=== PATIENT | female | born 1940 | race Caucasian/White ===

== ENCOUNTER 2016-12-30 17:06 | Emergency (ER) | payer MEDICARE, SELFPAY ==
[~2016-12-30 17:06] MED LIST: ASPIRIN EC81 MG PO; ATROVENT2.5 ML NEB; DAILY MULTIPLE1 EAC1 PO; INDERAL20 MG PO; LATANOPROST2.5 ML OP; LEVAQUIN500 MG PO; MYSOLINE50 MG PO; NAPROSYN500 MG PO; PRILOSEC OTC20 MG PO; PROZAC20 MG PO; ZESTRIL20 M1 PO; ZOCOR40 MG PO
[2016-12-30 17:35] LABS: URINE BILIRUBIN NEGATIVE (NEGATIVE); URINE BLOOD NEGATIVE (NEGATIVE); URINE GLUCOSE (UA) NORMAL (NORMAL); URINE KETONE NEGATIVE (NEGATIVE); URINE LEUKOCYTE ESTERASE TRACE (NEGATIVE); URINE NITRATE NEGATIVE (NEGATIVE); URINE PROTEIN NEGATIVE (NEGATIVE); UROBILINOGEN NORMAL mg/dL (<1.0)
[2016-12-30 18:24] LABS: URINE SQUAMOUS EPITHELIAL CELL 15-20 /[HPF] (NONE SEEN); URINE WBC 0-5 /[HPF] (0-5)
== END 2016-12-30 18:38 | disposition home or self-care (01) ==
LOC: ER 17:06
PROVIDERS: General Practice
DX: M25.551 Pain in right hip (principal); G89.29 Other chronic pain; R30.0 Dysuria; Z79.899 Other long term (current) drug therapy; Z79.82 Long term (current) use of aspirin; Z79.1 Long term (current) use of non-steroidal anti-inflammatories (NSAID)
CPT/HCPCS: 73502; 81001; 99070; 99283